=== PATIENT | male | born 1995 | race Caucasian/White ===

== ENCOUNTER 2023-07-22 21:53 | Emergency (ER) | payer BC, MEDICAID, SELFPAY ==
[2023-07-22 21:54] VITALS: BP 133/91; PULSE 118; RESP 16; TEMP 36.9; O2SAT 96; BMI 35.9
--- NOTE | 2023-07-22 22:05 | XRR_ITS ---
PROCEDURE INFORMATION: Exam: XR Soft Tissue Neck Exam date and time: 07/22/2023 10:09 PM Age: 27 years old Clinical indication: Epiglottitis; Acute; Additional info: Sore throat, R/O epiglotitis TECHNIQUE: Imaging protocol: Radiologic exam of the soft tissues of the neck. COMPARISON: No relevant prior studies available. FINDINGS: Airway: Normal. No abnormal narrowing. Soft tissues: The epiglottis appears thickened which can be seen the setting of epiglottitis. Bones/joints: Unremarkable. XR/XR soft tissue neck [id number] IMPRESSION: The epiglottis appears thickened which can be seen the setting of epiglottitis.
[2023-07-22] MEDS: cefTRIAXone 1,000 MG in water for injection-sterile 2.1 ML 1 MG IM (22:31)
[2023-07-22] MEDS: dexamethasone 10 mg/mL INJ 8 MG IM (22:33)
--- NOTE | 2023-07-22 23:32 | W.ED.GENADLT ---
Documented by User: [email or web address] Brown 07/23/23 17:17 HPI - General Adult General: Chief complaint: General Medical Stated complaint: sore throat Time Seen by Provider: 07/22/23 21:58 Source: patient Mode of arrival: EMS Limitations: no limitations History of Present Illness: Patient is a 27-year-old male who presents to the emergency department via EMS due to sore throat. Patient states he was recently seen at [facility] where he was diagnosed with epiglottitis. He was offered transfer to ICU in [place], but he denied this and was treated with outpatient antibiotics. He states he quit taking the antibiotics [facility] as he was improving and they were causing him to feel sick. He now notes that the sore throat is back and feels similar to how it did with his epiglottitis. He states he took a picture of his throat with his phone, and noticed that his tonsils were abnormally swollen. He denies any fever, shortness of breath, chest pain, or other symptoms at this time. He states he was treated with clindamycin. MD complaint: Sore throat, reported recent epiglottitis Onset (ago): day(s) Associated symptoms: Deny chest pain, dyspnea, headache(s), nausea, rash, palpitations or vomiting Review of Systems General: Reports: 10 or more systems reviewed and unremarkable except in HPI and below Const: Denies: fever(s), chills or fatigue Eyes: Denies: change in vision ENMT: Reports: throat pain and enlarged tonsils; Denies: ear or mastoid pain or nasal discharge Card: Denies: chest pain, palpitations, swelling of feet/ankles or lightheadedness Resp: Denies: dyspnea, productive cough or wheezing GI: Denies: abdominal pain, nausea, vomiting, diarrhea or constipation : Denies: flank pain, difficulty urinating, dysuria or urinary frequency Musc: Denies: neck pain, back pain or joint pain Skin/Breast: Denies: rash Neuro: Denies: headache(s), numbness in extremities or weakness in extremities Physical Exam Const: COMMON NORMALS: no acute distress and healthy appearing GENERAL APPEARANCE: cooperative, comfortable and well developed HENMT: COMMON NORMALS: normocephalic, atraumatic, hearing grossly normal bilaterally, external ears normal, EAC's normal, TM's normal bilaterally, Normal external nose present and Normal nasal mucous membranes and turbinates present HEAD & SCALP: normal to inspection, normocephalic and atraumatic FACE & SINUS: normal facial exam and sinuses nontender NOSE: Normal external nose present, Normal nares present, No nasal polyps present and Normal nasal mucous membranes and turbinates present EXTERNAL EAR: Yes external ears normal EXTERNAL AUDITORY CANAL: EAC's normal TYMPANIC MEMBRANE: TM's normal bilaterally MOUTH: Normal oral and palatal mucosa present THROAT: posterior oropharynx normal and abnormal tonsil bilateral hypertrophy Eye: COMMON NORMALS: EOMs intact bilaterally, conjunctivae normal and normal visual paz by confrontation GENERAL EYE: appearance normal, both eyes and all related structures CONJUNCTIVA: Yes conjunctivae normal Neck/C-Spine: COMMON NORMALS: full ROM, no lymphadenopathy, supple and no meningeal signs GENERAL: Yes normal visual inspection Chest: COMMONS NORMALS: normal inspection of the chest Resp: COMMON NORMALS: normal respiratory effort and clear to auscultation bilaterally EFFORT & INSPECTION: Yes able to speak in complete sentences AUSCULTATION: clear to auscultation bilaterally Cardio: COMMON NORMALS: regular rate, regular rhythm, S1 normal heart sound present and S2 normal heart sound present RATE: regular rate RHYTHM: regular rhythm HEART SOUNDS: S1 normal heart sound present, S2 normal heart sound present, no gallops, no murmurs and no rubs GI: COMMON NORMALS: Soft to palpation and No hepatosplenomegaly present INSPECTION: Yes normal to inspection PALPATION: Yes Soft to palpation and Yes No hepatosplenomegaly present Extremity: COMMON NORMALS: normal to inspection, full ROM and capillary refill normal Neuro: MENINGEAL SIGNS: Yes no meningeal signs Skin: COMMON NORMALS: no rashes or lesions noted GENERAL SKIN EXAM: no rashes or lesions noted Course Vital Signs: Vital signs: Vital Signs Temperature 98.4 F 07/22/23 21:54 Pulse Rate 102 H 07/22/23 23:43 Respiratory Rate 18 07/22/23 23:43 Blood Pressure 116/83 07/22/23 23:43 Pulse Oximetry 95 07/22/23 23:43 Oxygen Delivery Me thod Room Air 07/22/23 21:54 [facility] - General Adult Medical Decision Making Patient was seen for sore throat. States he was seen at [facility] couple weeks ago with sore throat and diagnosed with epiglottitis. He took clindamycin instead of transfer to ICU in [place], and states he quit clindamycin after it started to cause him to have GI symptoms. On arrival his airway was patent and O2 saturation was unremarkable. Other than elevated heart rate, the rest of his vitals were unremarkable. Lateral neck soft tissue x-ray commented on some epiglottitis thickening, and a CT was obtained which ruled this out and stated that his tonsils were enlarged bilaterally without abscess. Will treat patient for a tonsillitis with cefdinir, this is discussed with the patient and he agrees to take the full regimen this time. He was given shot of Rocephin and Decadron while in the emergency department, and throughout his ED course he has remained stable with normal respiratory effort. Reasons to return are discussed. Chart reviewed Lab Data Radiology Impressions Soft Tissue Neck X-Ray 07/22/23 22:05 IMPRESSION: The epiglottis appears thickened which can be seen the setting of epiglottitis. Neck CT 07/23/23 00:05 IMPRESSION: 1. The epiglottis is normal in appearance. 2. The bilateral palatine tonsils are enlarged consistent with tonsillitis with no peritonsillar abscess. 3. There is a 2.4 cm hypodense lesion in the right lobe of the thyroid gland which is incompletely assessed on this examination. Consider dedicated thyroid ultrasound on a nonemergent basis for further evaluation. All radiology interpretation(s) finalized by discharge Discharge Plan Discharge Patient Disposition: Home Clinical Impression: Tonsillitis Condition: Stable Prescriptions: New prednisone 20 mg tablet 60 mg PO ONCE 5 Days Qty: 15 0RF cefdinir 300 mg capsule 300 mg PO BID 10 Days Qty: 20 0RF Discharge Orders: Discharge ED (Routine); Ordered 07/23/23 Ordered By: Will Mackenzie Discharge Diet: Usual diet Discharge Activity: Increase activity as tolerated Patient Instructions: Tonsillitis (ED) Activity Restrictions/Additional Instructions: Cefdinir. Prednisone. Plenty of fluids. Tylenol or ibuprofen for fevers. Follow-up with primary care. Return with any new or concerning symptoms. Coding Level of Care Code ED Horse Breaker for Chg Fwd Documented by User: Carmelo Melara DO 07/24/23 07:48 HPI - General Adult General: Chief complaint: General Medical Stated complaint: sore throat Time Seen by Provider: 07/22/23 21:58 Course Vital Signs: Vital signs: Vital Signs Temperature 98.4 F 07/22/23 21:54 Pulse Rate 102 H 07/22/23 23:43 Respiratory Rate 18 07/22/23 23:43 Blood Pressure 116/83 07/22/23 23:43 Pulse Oximetry 95 07/22/23 23:43 Oxygen Delivery Me thod Room Air 07/22/23 21:54 MDM - General Adult Medical Decision Making Chart reviewed Medical Records I reviewed the patient's medical records. Lab Data I reviewed the patient's lab results. Radiology Impressions Soft Tissue Neck X-Ray 07/22/23 22:05 IMPRESSION: The epiglottis appears thickened which can be seen the setting of epiglottitis. Neck CT 07/23/23 00:05 IMPRESSION: 1. The epiglottis is normal in appearance. 2. The bilateral palatine tonsils are enlarged consistent with tonsillitis with no peritonsillar abscess. 3. There is a 2.4 cm hypodense lesion in the right lobe of the thyroid gland which is incompletely assessed on this examination. Consider dedicated thyroid ultrasound on a nonemergent basis for further evaluation. Discharge Plan Discharge Patient Disposition: Home Clinical Impression: Tonsillitis Condition: Stable Prescriptions: New prednisone 20 mg tablet 60 mg PO ONCE 5 Days Qty: 15 0RF cefdinir 300 mg capsule 300 mg PO BID 10 Days Qty: 20 0RF Discharge Orders: Discharge ED (Routine); Ordered 07/23/23 Ordered By: Will Mackenzie Discharge Diet: Usual diet Discharge Activity: Increase activity as tolerated Patient Instructions: Tonsillitis (ED) Activity Restrictions/Additional Instructions: Cefdinir. Prednisone. Plenty of fluids. Tylenol or ibuprofen for fevers. Follow-up with primary care. Return with any new or concerning symptoms. Coding Level of Care Code ED Horse Breaker for Quynh Bradshaw
[2023-07-22 23:43] VITALS: BP 116/83; PULSE 102; RESP 18; O2SAT 95
--- NOTE | 2023-07-23 00:05 | CTR_ITS ---
PROCEDURE INFORMATION: Exam: CT Neck Without Contrast Exam date and time: 07/23/2023 12:23 AM Age: 27 years old Clinical indication: Epiglottitis; Other: Thickening; Additional info: Epiglottis thickening TECHNIQUE: Imaging protocol: Computed tomography of the neck without contrast. Radiation optimization: All CT scans at this facility use at least one of these dose optimization techniques: automated exposure control; mA and/or kV adjustment per patient size (includes targeted exams where dose is matched to clinical indication); or iterative reconstruction. COMPARISON: CR (NECK, ) 07/22/2023 10:09 PM RADIATION DOSE METRICS: Total DLP (mGy-cm): 340.2 FINDINGS: Pharynx: The bilateral palatine tonsils are enlarged with no peritonsillar abscess. Findings can be seen the setting of tonsillitis. Larynx: Epiglottis is normal in appearance. Prevertebral and retropharyngeal spaces: Unremarkable. Salivary glands: Normal. Glands are normal in size. Thyroid: There is a 2.4 cm hypodense lesion in the right lobe of the thyroid gland which is incompletely assessed on this examination. Consider dedicated thyroid ultrasound on a nonemergent basis for further evaluation. Lymph nodes: Unremarkable. No lymphadenopathy. Trachea: Visualized trachea is unremarkable. Lungs: Unremarkable as visualized. Bones/joints: Unremarkable. No acute fracture. Soft tissues: Unremarkable. No significant soft tissue swelling. CT/CT neck wo con [id number] IMPRESSION: 1. The epiglottis is normal in appearance. 2. The bilateral palatine tonsils are enlarged consistent with tonsillitis with no peritonsillar abscess. 3. There is a 2.4 cm hypodense lesion in the right lobe of the thyroid gland which is incompletely assessed on this examination. Consider dedicated thyroid ultrasound on a nonemergent basis for further evaluation.
[2023-07-23] MEDS: cefdinir 300 MG CAPSULE PO (01:02)
== END 2023-07-23 01:03 | disposition home or self-care (01) ==
PROVIDERS: Emergency Provider Physician Assistant
DX: J03.90 Acute tonsillitis, unspecified (principal)
CPT/HCPCS: 70360; 70490; 96372; 99284; J0696; J1100